=== PATIENT | male | born 1940 | race Caucasian/White ===

== ENCOUNTER 2017-05-22 18:45 | Emergency (ER) | payer OTHER ==
[2017-05-22 18:52] VITALS: RESP 16
--- NOTE | 2017-05-22 19:38 | EDPHY ---
H & P Time Seen by Provider: 05/22/17 19:18 HPI/ROS: CHIEF COMPLAINT: Thumb laceration HISTORY OF PRESENT ILLNESS: This is a 77-year-old male patient presenting to the emergency department complaining of a laceration to right thumb. Patient states he was in the kitchen when 1 of the kitchen knives fell off of the knife osuna hitting is right thumb. Laceration to the right fat pad, bleeding controlled. Patient states tetanus vaccine is up-to-date. Denies any other injuries REVIEW OF SYSTEMS: Constitutional: No fever, no chills. Eyes: No discharge. ENT: No sore throat. Cardiovascular: No chest pain, no palpitations. Respiratory: No cough, no shortness of breath. Musculoskeletal: No back pain. Right thumb laceration Skin: No rashes. Neurological: No headache. Smoking Status: Never smoked Physical Exam: General Appearance: Alert and no distress. No focal deficits. Answering questions appropriately Eyes: Pupils equal and round no injection. Respiratory: Nonlabored respiratory effort Cardiac: regular rate and rhythm Musculoskeletal: Neck is supple and nontender. Extremities: 2.5 cm laceration to right thumb fat pad. No flexor tender involvement full range of motion Skin: No rashes or lesions. Constitutional: Initial Vital Signs Temperature (C) 36.8 C 05/22/17 18:49 Heart Rate 56 L 05/22/17 18:49 Respiratory Rate 16 05/22/17 18:49 Blood Pressure 137/85 H 05/22/17 18:49 O2 Sat (%) 92 05/22/17 18:49 O2 Delivery Mode Room Air Allergies/Adverse Reactions: No Allergies [NKDA] Allergy (Verified 05/22/17 18:46) Home Medications: Medication Instructions Recorded Cholecalciferol Vit D3 [Vitamin D3 1,000 units PO DAILY 11/29/13 1000 units (OTC)] Fluticasone/Salmeter 100/50Mcg 1 puffs IH DAILY 11/29/13 [Advair] Glucosam/Chondr/Collagn/Hyalur 1 each PO BID 11/29/13 [Glucosamine & Chondroitin Cap] Multivitamins [Tab-A-Letha] 1 each PO DAILY 11/29/13 Hernando-3 Fatty Acids/Fish Oil [Fish 1 each PO DAILY 11/29/13 Oil 1,000 mg Softgel] Zolpidem Tartrate [Ambien 10 mg] 10 mg PO HS PRN 11/29/13 Aspirin [Aspirin 325 mg (OTC)] 325 - 650 mg PO DAILY PRN 12/06/13 Calcium Carbonate [Tums 500MG 500 - 1,000 mg PO PRN PRN 12/06/13 (OTC)] Medical Decision Making Procedures: Procedure: Laceration repair. Verbal consent was obtained from the patient. 2.5 cm laceration on the right thumb fat pad. 0.5% bupivacaine without epi 3ml The wound was irrigated. There were no deep no tendon involvement structures involved. The wound was repaired 5-0 Prolene #7 sutures placed The procedure was performed by myself. A dressing was applied by our EMT. ED Course/Re-evaluation: Discussed ED plan of care: Wound irrigation, wound repair 2015: Wound repair. Patient tolerated procedure. Discharge home---> stable, discussed all discharge instructions. Differential Diagnosis: Other differential diagnosis considered but not limited to laceration with tendon involvement, foreign body, open fracture Departure - Departure Disposition: Home, Routine, Self-Care Clinical Impression: Laceration Condition: Good Instructions: Care For Your Stitches (ED), Laceration (ED) Additional Instructions: 1. Have sutures removed in 10 days 2. We have initial dressing on for 24 hours then after that daily dressing changes. You can use just regular soap and tap water no croc side as this can destroyed the fresh granulation tissue 3. Ibuprofen 600 mg every 6-8 hours as needed 4. Monitor for any signs of infection, such as: Redness swelling red streaks pus return to the ER if this should occur Referrals: Bruce Caraballo MD [Primary Care Provider] - As per Instructions
[2017-05-22 20:50] VITALS: BP 141/94; PULSE 52; TEMP 97.7; O2SAT 94
== END 2017-05-22 20:50 | disposition home or self-care (01) ==
PROC: 0HQFXZZ Repair Right Hand Skin, External Approach (ICD-10-PCS; principal; 2017-05-22)
DX: S61.011A Laceration without foreign body of right thumb without damage to nail, initial encounter (principal); Z79.82 Long term (current) use of aspirin; W26.0XXA Contact with knife, initial encounter; Y92.000 Kitchen of unspecified non-institutional (private) residence as the place of occurrence of the external cause
CPT/HCPCS: 12001; 99282; L3925

== ENCOUNTER → 2017-12-21 | Outpatient (CLI) | payer OTHER | LOC: BMCIMAGING 10:42 | PROVIDERS: ATTEND Podiatrist Foot & Ankle Surgery | DX: M77.32 Calcaneal spur, left foot (principal) ==